=== PATIENT | female | born 1955 | race Caucasian/White ===

== ENCOUNTER 2017-07-29 15:28 | Outpatient (CLI) | payer OTHER ==
--- NOTE | 2017-07-29 15:59 | RAD ---
THREE VIEWS OF THE FACIAL BONES: COMPARISON: None. HISTORY: Ran into a pole with left-sided facial swelling. FINDINGS: Three views of the facial bones show no evidence of displaced facial bone fracture. The nasal septum appears midline. The visualized paranasal sinuses are well aerated. IMPRESSION: No evidence of displaced facial fracture. POS: [facility]
--- NOTE | 2017-07-29 16:00 | RAD ---
THREE VIEWS NASAL BONES: HISTORY: Ran into a pole 3 hours ago with facial pain and swelling. FINDINGS: Three views of the nasal bones show no evidence of acute fracture or dislocation of the nasal bones. There may be mild nasal septal deviation to the left, not appreciated on the facial bone series. IMPRESSION: No evidence of a displaced nasal bone fracture. POS: [facility]
== END 2017-07-29 15:29 | disposition home or self-care (01) ==
LOC: MADRAD 15:28
PROVIDERS: ATTEND Nurse Practitioner Family
DX: S00.83XA Contusion of other part of head, initial encounter (principal)
CPT/HCPCS: 70150; 70160